=== PATIENT | male | born 1975 | race Caucasian/White ===

== ENCOUNTER 2024-01-09 19:47 | Emergency (ER) | payer OTHER ==
[2024-01-09 19:57] VITALS: TEMP 97.5
--- NOTE | 2024-01-09 20:51 | ED ---
Upper Extremity HPI - General Source: patient Mode of arrival: ambulatory Limitations: no limitations <Jonnathan Abel - Last Filed: 01/09/24 20:50> - General Source: RN notes reviewed <Jerri Camacho - Last Filed: 01/10/24 00:15> - General Chief Complaint: Extremity Injury, Upper Stated Complaint: Fall, Wrist Injuries Time Seen by Provider: 01/09/24 20:50 - History of Present Illness Initial Comments: Quick note: 48-year-old male presenting chief complaint of bilateral wrist pain. States that he was doing yard work when he tripped and fell with his hands in flexion. No numbness or tingling. (Jonnathan Abel) 48-year-old male presenting with chief complaint of bilateral wrist pain status post mechanical fall 1 hour ago. States he was doing yard work and tripped and fell, landing with wrists flexed. Denies numbness or tingling. Denies hitting head or losing consciousness. Denies blood thinners. He is able to move his wrists however admits pain with movement. (Jerri Camacho) - Related Data Allergies Allergy/AdvReac Type Severity Reaction Status Date / Time No Known Allergies Allergy Verified 01/09/24 19:57 Review of Systems ROS Other: All systems not noted in ROS Statement are negative. <Jonnathan Abel - Last Filed: 01/09/24 20:50> ROS Other: All systems not noted in ROS Statement are negative. <Jerri Camacho - Last Filed: 01/10/24 00:15> ROS Statement: Those systems with pertinent positive or pertinent negative responses have been documented in the HPI. Past Medical History Past Medical History: No Reported History History of Any Multi-Drug Resistant Organisms: None Reported Past Surgical History: No Surgical Hx Reported Past Psychological History: No Psychological Hx Reported Smoking Status: Current some day smoker Past Alcohol Use History: None Reported Past Drug Use History: None Reported <Jonnathan Abel - Last Filed: 01/09/24 20:50> General Exam Limitations: no limitations <Jonnathan Abel - Last Filed: 01/09/24 20:50> General appearance: alert, in no apparent distress Head exam: Present: atraumatic, normocephalic, normal inspection Eye exam: Present: normal appearance, PERRL, EOMI. Absent: scleral icterus, conjunctival injection, periorbital swelling ENT exam: Present: normal exam, mucous membranes moist Neck exam: Present: normal inspection. Absent: tenderness, meningismus, lymphadenopathy Extremities exam: Present: normal inspection, full ROM, normal capillary refill, other (Bilateral wrists: No skin changes or contusions. Full range of motion of elbows, wrists, and all digits bilaterally. Full radial pulses.). Absent: tenderness, pedal edema, joint swelling, calf tenderness <Jerri Camacho - Last Filed: 01/10/24 00:15> - General Exam Comments Initial Comments: Visual Physical Exam Vital signs reviewed General: Well-appearing, nontoxic, no acute distress. Head: Normocephalic, atraumatic Eyes: PERRLA, EOMI ENT: Airway patent Chest: Nonlabored breathing Skin: No visual rash, normal skin tone Neuro: Alert and oriented 3 Musculoskeletal: No gross abnormalities (Jonnathan Abel) Course Vital Signs 01/09/24 19:54 Temperature 97.5 F L Pulse Rate 63 Respiratory 18 Rate Blood Pressure 138/91 O2 Sat by Pulse 97 Oximetry Medical Decision Making <Jonnathan Abel - Last Filed: 01/09/24 20:50> <Jerri Camacho - Last Filed: 01/10/24 00:15> - Medical Decision Making I performed the quick note portion of this visit, electronically signed Jonnathan Abel PA-C (Jonnathan Abel) Was pt. sent in by a medical professional or institution ([facility], [facility], urgent care, hospital, or [facility]...) When possible be specific @ -No Did you speak to anyone other than the patient for history (EMS, parent, family, police, friend...)? What history was obtained from this source @ -No Did you review nursing and triage notes (agree or disagree)? Why? @ -I reviewed and agree with nursing and triage notes Were old charts reviewed (outside hosp., previous admission, EMS record, old EKG, old radiological studies, urgent care reports/EKG's, [facility] records)? Report findings @ -No old charts were reviewed Differential Diagnosis (chest pain, altered mental status, abdominal pain women, abdominal pain men, vaginal bleeding, weakness, fever, dyspnea, syncope, headache, dizziness, GI bleed, back pain, seizure, CVA, palpatations, mental health, musculoskeletal)? @ -Differential Musculoskeletal Muscular strain, contusion, ligament sprain, fracture, arthritis, septic arthritis, bursitis, cellulitis, muscle spasm, nerve compression, DVT, arterial occlusion, herpes zoster, electrolyte abnormality, tumor.... This is not meant to be in all inclusive list EKG interpreted by me (3pts min.). @ -None X-rays interpreted by me (1pt min.). @ -Bilateral wrist x-rays negative for acute process CT interpreted by me (1pt min.). @ -None done U/S interpreted by me (1pt. min.). @ -None done What testing was considered but not performed or refused? (CT, X-rays, U/S, labs)? Why? @ -None What meds were considered but not given or refused? Why? @ -None Did you discuss the management of the patient with other professionals (professionals i.e. , PA, [facility], lab, RT, psych nurse, social services coordinator, ton container filler, teacher, credit control officer, heel caser)? Give summary @ -No Was smoking cessation discussed for >3mins.? @ -No Was critical care preformed (if so, how long)? @ -No Were there social determinants of health that impacted care today? How? (Homelessness, low income, unemployed, alcoholism, drug addiction, transportation, low edu. Level, literacy, decrease access to med. care, fpc, rehab)? @ -No Was there de-escalation of care discussed even if they declined (Discuss DNR or withdrawal of care, Hospice)? DNR status @ -No What co-morbidities impacted this encounter? (DM, HTN, Smoking, COPD, CAD, Cancer, CVA, ARF, Chemo, Hep., AIDS, mental health diagnosis, sleep apnea, morbid obesity)? @ -None Was patient admitted / discharged? Hospital course, mention meds given and route, prescriptions, significant lab abnormalities, going to OR and other pertinent info. @ -Patient was discharged. Patient was seen and evaluated for bilateral wrist pain status post mechanical fall with flexed wrist. Patient is neurovascularly intact. X-rays of bilateral wrist reveal no acute process. Patient given ibuprofen for pain. Discussed diagnosis of bilateral wrist strains with patient. Supportive care discussed. Work note provided. Strict return/alarm symptoms discussed with patient in detail and he shows understanding and agrees with plan. Case discussed with my attending Dr. Rivas. Patient discharged in stable condition. Undiagnosed new problem with uncertain prognosis? @ -No Drug Therapy requiring intensive monitoring for toxicity (Heparin, Nitro, Insulin, Cardizem)? @ -No Were any procedures done? @ -No Diagnosis/symptom? @ -Bilateral wrist strain Acute, or Chronic, or Acute on Chronic? @ -Acute Uncomplicated (without systemic symptoms) or Complicated (systemic symptoms)? @ -Uncomplicated Side effects of treatment? @ -No Exacerbation, Progression, or Severe Exacerbation? @ -No Poses a threat to life or bodily function? How? (Chest pain, [place], [place], pneumonia, PE, COPD, DKA, ARF, appy, cholecystitis, CVA, Diverticulitis, Homicidal, Suicidal, threat to staff... and all critical care pts) @ -Low likelihood (Jerri Camacho) Disposition <Jonnathan Abel - Last Filed: 01/09/24 20:50> Is patient prescribed a controlled substance at d/c from ED?: No Time of Disposition: 00:12 <Jerri Camacho - Last Filed: 01/10/24 00:15> Clinical Impression: Strain of wrist, bilateral Disposition: HOME SELF-CARE Condition: Stable Instructions (If sedation given, give patient instructions): Wrist Sprain (ED) Additional Instructions: Please return to the Emergency Department if symptoms worsen or any other concerns. Referrals: None,Stated [Primary Care Provider] - 1-2 days
[2024-01-09] MEDS: IBUPROFEN 600 MG TAB PO STA (21:11)
--- NOTE | 2024-01-09 23:59 | XR ---
EXAMINATION TYPE: XR wrist complete BILATERAL DATE OF EXAM: 01/09/2024 8:18 PM CLINICAL INDICATION:Male, 48 years old with history of fall; [facility] COMPARISON: None. TECHNIQUE: 4 views FINDINGS: Osseous mineralization appears appropriate. No destructive bony lesion. No acute fracture or dislocat ion. There are mild diffuse osteoarthritic changes bilaterally. Unremarkable soft tissues. No radiopa que foreign body is seen. IMPRESSION: No evidence of fracture or dislocation.
[2024-01-10 00:33] VITALS: BP 133/86; PULSE 56; RESP 16
== END 2024-01-10 01:16 | disposition home or self-care (01) ==
LOC: EC 19:47
DX: S66.911A Strain of unspecified muscle, fascia and tendon at wrist and hand level, right hand, initial encounter (principal); S66.912A Strain of unspecified muscle, fascia and tendon at wrist and hand level, left hand, initial encounter; F17.200 Nicotine dependence, unspecified, uncomplicated; W01.0XXA Fall on same level from slipping, tripping and stumbling without subsequent striking against object, initial encounter
CPT/HCPCS: 99283